=== PATIENT | female | born 1990 | race African-American/Black ===

== ENCOUNTER 2018-12-11 13:09 | Emergency (ER) | payer MEDICAID, OTHER ==
[~2018-12-11] VITALS: Ht 165.1 cm; Wt 61.2 kg
[2018-12-11 14:26] VITALS: BP 120/80
[2018-12-11] MEDS ORDERED: methylPREDNISolone SOD SUCC 125 MG/2 ML VL IM ONE (15:00)
== END 2018-12-11 15:32 | disposition home or self-care (01) ==
LOC: ER 13:09
DX: S00.86XA Insect bite (nonvenomous) of other part of head, initial encounter (principal); W57.XXXA Bitten or stung by nonvenomous insect and other nonvenomous arthropods, initial encounter; Y93.89 Activity, other specified; Y99.8 Other external cause status; Y92.89 Other specified places as the place of occurrence of the external cause
CPT/HCPCS: 81025; 96372; 99283; J2930